=== PATIENT | female | born 1950 | race Caucasian/White ===

== ENCOUNTER 2021-06-09 10:34 | Inpatient (IN) | payer BC ==
[2021-06-09] MEDS ORDERED: fentaNYL Citrate-0.9 % NaCl/PF 100 ML IVPB SCH ×2 (11:00→14:45)
[2021-06-09 11:02] LABS: Mean Corpuscular HGB CONC 29.5 g/dL (32.0-36.0); Mean Corpuscular Hemoglobin 29.7 pg (27.0-33.0); Mean Corpuscular Volume 100.9 fl (81.6-98.3); Mean Platelet Volume 10.5 fl (7.4-10.4); Platelet Count 479 10x3/uL (150-450); RBC Distribution Width 13.5 % (11.5-14.5); Red Blood Cell (RBC) Count 5.38 10x6/uL (3.90-5.03); White Blood Cell (WBC) Count 35.2 10x3/uL (3.5-10.5)
[2021-06-09 11:03] LABS: MDiff Complete? YES
[2021-06-09 11:06] LABS: PTT 51.8 sec (22.0-33.0); Prothrombin Time 11.5 sec (9.5-12.1)
[2021-06-09 11:11] LABS: Acetaminophen Less than 6.0 mcg/mL (10.0-30.0); Alcohol Less than 10 mg/dL (Less than 10); Magnesium 3.2 mg/dL (1.6-2.6); Salicylate Less than 8.0 mg/dL (15.0-30.0)
[2021-06-09 11:12] LABS: ALT (SGPT) 17 U/L (8-55); AST (SGOT) 26 U/L (5-34); Albumin 4.7 g/dL (3.4-4.8); Alkaline Phosphatase 108 U/L (40-110); BUN (Urea Nitrogen) 18 mg/dL (9.8-20.1); Bilirubin, Total 0.2 mg/dL (0.2-1.2); Calc. Creatinine Clearance 0 mL/min (70-130); Calcium 10.1 mg/dL (7.8-10.44); Chloride 113 mmol/L (98-107); Globulin 3.4 g/dL (2.4-3.5); Glucose 211 mg/dL (80-115); Potassium 4.8 mmol/L (3.5-5.1); Protein, Total 8.1 g/dL (5.8-8.1); Sodium 149 mmol/L (136-145)
[2021-06-09 11:16] LABS: Carbon Dioxide Less than 8 mmol/L (23-31)
[2021-06-09 11:17] LABS: Band 1 % (5-11); Lymphocytes 9 % (21-51); Monocytes 8 % (0-10); Neutrophil 81 % (42-75)
[2021-06-09 11:23] LABS: Burr Cells SLIGHT = 2-5 cells (100X) (0-1/hpf); Platelet Morphology Comment Appears Increased
[2021-06-09 11:32] LABS: Bilirubin Neg (Negative); Blood, Urine 25 (Negative); Clarity Clear (Clear); Glucose, Urine (Dipstick) Normal (Negative); Ketone, Urine Negative (Negative); Leukocyte Negative (Negative); Nitrite Negative (Negative); Protein, Urine (Dipstick) 30 mg/dl (Neg-Trace); Urobilinogen Normal mg/dL (Less than 2)
[2021-06-09 11:40] LABS: Amphetamine Not Detected (NotDetected); Barbiturates Screen Not Detected (NotDetected); Benzodiazepine Screen Not Detected (NotDetected); Cocaine Metabolite Screen Not Detected (NotDetected); Methadone Not Detected (NotDetected); Methamphetamine Not Detected (NotDetected); Opiate Screen Not Detected (NotDetected); Oxycodone Screen Not Detected (NotDetected); Phencyclidine (PCP) Not Detected (NotDetected); THC/Cannabinoid Screen Not Detected (NotDetected); Tricyclic Screen Not Detected (NotDetected)
[2021-06-09 11:53] LABS: Bacteria/HPF None Seen HPF (None Seen); Calcium Oxalate Crystals Rare HPF (None Seen); RBC/HPF 0-3 HPF (0-3); Squamous Epithelial None Seen HPF (0-3); WBC/HPF None Seen HPF (0-3)
[2021-06-09] MEDS ORDERED: Cefepime 2 GM VIAL ONE (12:03)
[2021-06-09] MEDS ORDERED: Pantoprazole 40 MG VIAL ONE (12:04)
[2021-06-09 12:08] LABS: SARS-CoV-2 NAA Rapid Test DETECTED (NotDetected)
[2021-06-09] MEDS ORDERED: Sodium Bicarbonate 75 MEQ in Dextrose 5% in Water 500 ML IV SCH (13:00)
[2021-06-09 13:52] LABS: Lactic Acid 4.3 mmol/L (0.5-2.2)
[2021-06-09 14:00] LABS: Calcium, Ionized (arterial) 1.24 mmol/L (1.12-1.30); Carboxyhemoglobin (COHb) 0.3 gm% (0.0-3.0); Hemoglobin (Hb) 12.9 g/dL (12.0-16.0); O2 Tension (PaO2), arterial 326.3 mmHg (> 80.0); Potassium - ABG Lab 4.1 mmol/L (3.70-5.30); Puncture Site LRA
[2021-06-09 14:08] LABS: pH, Arterial Less than 6.50 (7.35-7.45)
[2021-06-09] MEDS ORDERED: Acetaminophen 325 MG TAB PER TUBE PRN (14:27)
[2021-06-09] MEDS ORDERED: Bisacodyl 10 MG SUPP PR PRN (14:27)
[2021-06-09] MEDS ORDERED: Norepinephrine 8 MG/0.9% NS 250 ML IVPB PRN (14:27)
[2021-06-09] MEDS ORDERED: Acetaminophen 650 MG Suppository PR PRN (14:27)
[2021-06-09] MEDS ORDERED: Ondansetron PF 4 MG/2 ML Vial IVP PRN (14:27)
[2021-06-09] MEDS ORDERED: Senokot S 8.6-50 MG TAB PER TUBE PRN (14:27)
[2021-06-09] MEDS ORDERED: Loperamide HCl 2 MG CAP PER TUBE PRN (14:27)
[2021-06-09] MEDS ORDERED: Ventilator Sedation Protocol 1 EACH FS SCH (14:30)
[2021-06-09] MEDS ORDERED: Dextrose 5% in Water 1,000 ML IV SCH (14:30)
[2021-06-09] MEDS ORDERED: Morphine 2 MG/ML VIAL SLOW IVP PRN (14:45)
[2021-06-09] MEDS ORDERED: DISCONTINUE PREVIOUS NARCOTIC PAIN MEDICATIONS AND BENZODIAZEPINES FS SCH (14:45)
[2021-06-09] MEDS ORDERED: Propofol 1,000 MG/100 ML VIAL IV PRN (14:45)
[2021-06-09] MEDS ORDERED: Fentanyl BOLUS 250 ML IVPB PRN (14:45)
[2021-06-09] MEDS ORDERED: Lorazepam 2 MG/ML VIAL SLOW IVP PRN (14:45)
[2021-06-09] MEDS ORDERED: Propofol BOLUS 1,000 MG/100 ML VIAL IV PRN (14:45)
[2021-06-09] MEDS ORDERED: Morphine 4 MG/ML VIAL SLOW IVP PRN (15:00)
[2021-06-09] MEDS ORDERED: DEXTROSE 5% IVPB SCH (15:30)
[2021-06-09] MEDS ORDERED: WATER IVPB SCH (15:30)
[2021-06-09] MEDS ORDERED: ACETYLCYSTEINE IVPB SCH (15:30)
[2021-06-09] MEDS ORDERED: FLU VACC QS2021-22(65YR UP)/PF 240 MCG/0.7 ML SYRINGE IM ONE (15:45)
[2021-06-09] MEDS: Sodium Bicarb 50 MEQ/50 ML VIAL ONE ×6 (16:21→16:39)
[2021-06-09] MEDS ORDERED: Sodium Bicarb 50 MEQ/50 ML VIAL IVP SCH (16:30)
[2021-06-09 16:57] LABS: Hep B Surf Ag Non-Reactive S/CO (NonReactive)
[2021-06-09] MEDS ORDERED: WATER IV SCH ×3 (17:00→22:00)
[2021-06-09] MEDS ORDERED: DEXTROSE 5% IV SCH ×3 (17:00→22:00)
[2021-06-09] MEDS ORDERED: ACETYLCYSTEINE IV SCH ×3 (17:00→22:00)
[2021-06-09 17:07] LABS: HBSAg Index 0.21 S/CO (0-0.99)
[2021-06-09 17:44] LABS: Calcium, Ionized (arterial) 1.25 mmol/L (1.12-1.30); Carboxyhemoglobin (COHb) 0.3 gm% (0.0-3.0); O2 Tension (PaO2), arterial 221.4 mmHg (> 80.0); Potassium - ABG Lab 5.4 mmol/L (3.70-5.30); Puncture Site LRA
[2021-06-09 17:47] LABS: pH, Arterial Less than 6.50 (7.35-7.45)
[2021-06-09] MEDS: Sodium Bicarbonate 75 MEQ, Admixture Fee 1 EACH in Dextrose 5% in Water 500 ML IV SCH ×2 (17:59→20:16)
[2021-06-09 18:08] LABS: Troponin I 0.508 ng/mL (< 0.028)
[2021-06-09] MEDS: Heparin 5,000 UNITS/ML VIAL SC SCH (20:16)
[2021-06-09] MEDS ORDERED: Rocuronium Bromide 10 MG/ML (10ML VIAL) ONE (20:20)
[2021-06-09] MEDS ORDERED: Vancomycin HCl 500 MG in Sodium Chloride 0.9% 100 ML IVPB SCH (21:00)
[2021-06-09 21:37] LABS: Troponin I 0.654 ng/mL (< 0.028)
[2021-06-10] MEDS: Norepinephrine 8 MG/0.9% NS 250 ML IVPB SCH ×5 (00:30→19:06)
[2021-06-10] MEDS: Sodium Bicarbonate 75 MEQ, Admixture Fee 1 EACH in Dextrose 5% in Water 500 ML IV SCH ×5 (00:40→19:06)
[2021-06-10 01:17] LABS: HBCM Index 0.07 S/CO (0-0.79); Hep A IgM AB Non-Reactive (NonReactive); Hep A IgM S/CO 0.17 S/CO (0-0.79); Hep C IgG Ab Non-Reactive (NonReactive); Hep C Index 0.05 S/CO (0-0.79); Hepatitis B Core IgM Abs Non-Reactive (NonReactive)
[2021-06-10] MEDS ORDERED: Sodium Bicarb 50 MEQ/50 ML VIAL IVP SCH ×2 (03:45→22:00)
[2021-06-10] MEDS ORDERED: Hydrocortisone Sod Succ/PF 100 mg/2 ml Vial IVP SCH (03:45)
[2021-06-10] MEDS: Vasopressin 20 UNIT, Admixture Fee 1 EACH in Sodium Chloride 0.9% 50 ML IV PRN ×3 (04:09→19:07)
[2021-06-10 04:14] LABS: Actual Bicarbonate (HCO3a) 5.7 mEq/L (22-28); CO2 Tension 38.2 mmHg (35.0-45.0); Calcium, Ionized (arterial) 0.99 mmol/L (1.12-1.30); Carboxyhemoglobin (COHb) 0.3 gm% (0.0-3.0); Hemoglobin (Hb) 14.2 g/dL (12.0-16.0); O2 Tension (PaO2), arterial 206.8 mmHg (> 80.0); Potassium - ABG Lab 4.2 mmol/L (3.70-5.30); Puncture Site LRA; pH, Arterial 6.79 (7.35-7.45)
[2021-06-10 04:24] VITALS: TEMP 98.9
[2021-06-10 04:27] LABS: Hemoglobin 13.5 g/dL (12.0-15.5); Mean Corpuscular HGB CONC 31.5 g/dL (32.0-36.0); Mean Corpuscular Hemoglobin 29.7 pg (27.0-33.0); Mean Corpuscular Volume 94.3 fl (81.6-98.3); Mean Platelet Volume 10.3 fl (7.4-10.4); Platelet Count 338 10x3/uL (150-450); RBC Distribution Width 13.7 % (11.5-14.5); Red Blood Cell (RBC) Count 4.54 10x6/uL (3.90-5.03); White Blood Cell (WBC) Count 49.9 10x3/uL (3.5-10.5)
[2021-06-10 04:54] LABS: Reflex for Review?? YES
[2021-06-10 04:57] LABS: BUN (Urea Nitrogen) 29 mg/dL (9.8-20.1); Calc. Creatinine Clearance 15 mL/min (70-130); Calcium 7.2 mg/dL (7.8-10.44); Carbon Dioxide Less than 8 mmol/L (23-31); Chloride 109 mmol/L (98-107); Glucose 205 mg/dL (80-115); Potassium 4.4 mmol/L (3.5-5.1); Sodium 151 mmol/L (136-145)
[2021-06-10 04:58] LABS: Band 3 % (5-11); Lymphocytes 5 % (21-51); Monocytes 5 % (0-10); Neutrophil 87 % (42-75)
[2021-06-10 05:01] LABS: Platelet Morphology Comment Appears Adequate; RBC Morphology Normal
[2021-06-10 05:22] LABS: Magnesium 2.2 mg/dL (1.6-2.6); Phosphorus 6.5 mg/dL (2.3-4.7)
[2021-06-10 05:48] LABS: MDiff Complete? YES
[2021-06-10 06:47] VITALS: BMI 28.8
[2021-06-10 08:39] LABS: Actual Bicarbonate (HCO3a) 5.9 mEq/L (22-28); Base Excess (BEa) -25.5 mEq/L (-2.0 to +3.0); CO2 Tension 28.5 mmHg (35.0-45.0); Calcium, Ionized (arterial) 0.89 mmol/L (1.12-1.30); Carboxyhemoglobin (COHb) 0.3 gm% (0.0-3.0); Hemoglobin (Hb) 13.9 g/dL (12.0-16.0); O2 Tension (PaO2), arterial 196.7 mmHg (> 80.0); Potassium - ABG Lab 3.8 mmol/L (3.70-5.30); Puncture Site RRA; pH, Arterial 6.94 (7.35-7.45)
[2021-06-10 08:42] LABS: ALV-art Gradient 124.175 mmHg (0-20)
[2021-06-10] MEDS ORDERED: Sodium Bicarb 50 MEQ/50 ML Abboject 8.4% SYRINGE IVP SCH (08:45)
[2021-06-10] MEDS ORDERED: Sodium Bicarb 50 MEQ/50 ML VIAL ONE ×2 (08:58→21:57)
[2021-06-10] MEDS ORDERED: Cefepime 1 GM in Sodium Chloride 0.9% 100 ML IVPB SCH (09:00)
[2021-06-10] MEDS ORDERED: Pantoprazole 40 MG VIAL IVP SCH (09:00)
[2021-06-10] MEDS ORDERED: Folic Acid 1 MG TAB PER TUBE SCH (09:00)
[2021-06-10] MEDS ORDERED: Cyanocobalamin (Vitamin B-12) 1,000 MCG TAB PER TUBE SCH (09:00)
[2021-06-10] MEDS ORDERED: Ascorbic Acid 500 mg Chewable Tablet PER TUBE SCH (09:00)
[2021-06-10] MEDS ORDERED: Cholecalciferol 1,000 UNITS (25 MCG) TAB PER TUBE SCH (09:00)
[2021-06-10] MEDS ORDERED: Zinc Sulfate 220 MG CAP PER TUBE SCH (09:00)
[2021-06-10 10:15] LABS: ALT (SGPT) 27 U/L (8-55); AST (SGOT) 73 U/L (5-34); Albumin 2.4 g/dL (3.4-4.8); Alkaline Phosphatase 67 U/L (40-110); Bilirubin, Direct 0.4 mg/dL (0.1-0.3); Bilirubin, Total 0.5 mg/dL (0.2-1.2); CK (CPK) 445 U/L (29-168); Protein, Total 4.2 g/dL (5.8-8.1)
[2021-06-10 12:32] LABS: Ref Lab Test Ordered METHANOL; Reference Lab Name LABCORP
[2021-06-10] MEDS: Heparin 5,000 UNITS/ML VIAL SC SCH (13:30)
[2021-06-10 15:58] VITALS: BP 123/92
[2021-06-10 21:34] LABS: Vancomycin, Random 16.3 ug/mL (See Comment)
[2021-06-10] MEDS ORDERED: Vancomycin HCl 500 MG in Sodium Chloride 0.9% 100 ML IVPB SCH (22:00)
[2021-06-10] MEDS ORDERED: Magnesium Sulfate 1 GM/2 ML VIAL ONE (22:26)
[2021-06-10] MEDS ORDERED: EPINEPHrine 1 MG/10 ML Abboject SYRINGE ONE (22:31)
[2021-06-10] MEDS ORDERED: Morphine 4 MG/ML VIAL SLOW IVP PRN (22:56)
[2021-06-10] MEDS ORDERED: Lorazepam 2 MG/ML VIAL SLOW IVP PRN (22:57)
[2021-06-10] MEDS ORDERED: Morphine 4 MG/ML VIAL SLOW IVP SCH (23:00)
[2021-06-10] MEDS ORDERED: Lorazepam 2 MG/ML VIAL SLOW IVP SCH (23:00)
[2021-06-11] MEDS ORDERED: EPINEPHrine 1 MG/10 ML Abboject SYRINGE ONE (02:00)
[2021-06-11] MEDS ORDERED: Amiodarone 150 MG/3 ML VIAL ONE (02:00)
[2021-06-11] MEDS ORDERED: Sodium Bicarb 50 MEQ/50 ML Abboject 8.4% SYRINGE ONE (02:00)
[2021-06-11] MEDS ORDERED: Vancomycin HCl 1 GM in Sodium Chloride 0.9% 250 ML 250 ML IVPB SCH (09:00)
== END 2021-06-11 03:05 | disposition expired | DRG 871 ==
LOC: CSHERS 10:34 → CSHICU 13:04
PROVIDERS: ADMIT Hospitalist; ATTEND Internal Medicine
PROC: 0BH17EZ Insertion of Endotracheal Airway into Trachea, Via Natural or Artificial Opening (ICD-10-PCS; principal; 2021-06-09)
PROC: 5A1945Z Respiratory Ventilation, 24-96 Consecutive Hours (ICD-10-PCS; 2021-06-09)
PROC: 8E0ZXY6 Isolation (ICD-10-PCS; 2021-06-09)
PROC: 3E033XZ Introduction of Vasopressor into Peripheral Vein, Percutaneous Approach (ICD-10-PCS; 2021-06-09)
PROC: 02HV33Z Insertion of Infusion Device into Superior Vena Cava, Percutaneous Approach (ICD-10-PCS; 2021-06-09)
PROC: 0DH67UZ Insertion of Feeding Device into Stomach, Via Natural or Artificial Opening (ICD-10-PCS; 2021-06-09)
PROC: 3E0G76Z Introduction of Nutritional Substance into Upper GI, Via Natural or Artificial Opening (ICD-10-PCS; 2021-06-09)
PROC: 5A12012 Performance of Cardiac Output, Single, Manual (ICD-10-PCS; 2021-06-10)
PROC: 3E043XZ Introduction of Vasopressor into Central Vein, Percutaneous Approach (ICD-10-PCS; 2021-06-10)
DX: A41.9 Sepsis, unspecified organism (principal); G93.41 Metabolic encephalopathy; J96.01 Acute respiratory failure with hypoxia; U07.1 COVID-19; I21.A1 Myocardial infarction type 2; J69.0 Pneumonitis due to inhalation of food and vomit; J12.82 Pneumonia due to coronavirus disease 2019; R65.21 Severe sepsis with septic shock; N17.9 Acute kidney failure, unspecified; E72.20 Disorder of urea cycle metabolism, unspecified; G93.1 Anoxic brain damage, not elsewhere classified; I47.2 Ventricular tachycardia; E87.1 Hypo-osmolality and hyponatremia; Z66 Do not resuscitate; Z51.5 Encounter for palliative care; T68.XXXA Hypothermia, initial encounter; F41.9 Anxiety disorder, unspecified; I10 Essential (primary) hypertension; D53.9 Nutritional anemia, unspecified; Z88.8 Allergy status to other drugs, medicaments and biological substances; Z79.899 Other long term (current) drug therapy; Z28.21 Immunization not carried out because of patient refusal
CPT/HCPCS: 0240U; 36415; 36416; 36600; 70450; 71045; 72125; 74177; 78610; 80048; 80053; 80074; 80076; 80179; 80202; 80306; 80307; 81003; 81015; 82140; 82550; 82553; 82693; 82805; 83605; 83735; 83880; 84100; 84443; 84484; 85007; 85025; 85027; 85060; 85610; 85730; 86850; 86900; 86901; 87040; 87086; 93005; 93010; 94002; 94003; 94760; A9521; C9113; J0132; J0171; J0282; J0692; J1644; J1720; J2060; J2270; J3370; J3490; J7070